=== PATIENT | female | born 1990 | race African-American/Black ===

== ENCOUNTER 2020-11-06 14:47 | Emergency (ER) | payer OTHER ==
[~2020-11-06] VITALS: Ht 160 cm; Wt 60.3 kg
[2020-11-06] MEDS ORDERED: PREDNISONE20 MG PO (15:29)
[2020-11-06] MEDS ORDERED: NAPROSYN500 MG PO (15:29)
== END 2020-11-06 15:37 | disposition home or self-care (01) ==
LOC: FSED 15:30
DX: M25.562 Pain in left knee (principal); M25.561 Pain in right knee; M34.9 Systemic sclerosis, unspecified
CPT/HCPCS: 99282

== ENCOUNTER 2022-09-08 12:07 | Emergency (ER) | payer MEDICARE ==
[~2022-09-08 12:07] MED LIST: CEPHALEXIN500 MG PO; NAPROSYN500 MG PO; PREDNISONE20 MG PO
== END 2022-09-08 12:35 | disposition left against medical advice (07) ==
LOC: ER 12:11
DX: R11.2 Nausea with vomiting, unspecified (principal)